=== PATIENT | male | born 1970 | race Caucasian/White ===

== ENCOUNTER 2023-11-27 12:25 | Inpatient (IN) | payer BC, SELFPAY ==
[2023-11-26] VITALS (10 sets, daily range): BP systolic 100–115; BP diastolic 57–74; BMI 28.9; BMI 29.6
[2023-11-26] MEDS: OMNIPAQUE 50 ML PO (10:29)
--- NOTE | 2023-11-26 10:33 | ED.GENMED ---
History of Present Illness
General
Chief Complaint: Abdominal Symptoms
Source: patient, records and spouse
Exam Limitations: none
Time Seen by Provider: 11/26/23 09:00
Nursing documentation reviewed up to this point in time: agreed with
Travel History
Have you had any contact with someone who has COVID-19?: No
Do you have any symptoms of coronavirus? Fever > 100 degrees, chills, cough, shortness of breath, sore throat, loss of taste or smell, muscle aches, or headache?: No
History of Present Illness
History of Present Illness:
Patient is a 53-year-old male who presents to the emergency department complaining of lower abdominal pain that started yesterday and has gotten progressively worse. Patient's had 2 episodes of nausea and vomiting. Patient had mucousy stools.
Patient had a colonoscopy which did show diverticula. Patient has fever and chills. Patient denies nasal congestion, sore throat or cough. Patient denies any chest pain or shortness of breath. Patient denies any symptoms. Patient denies any
melena or hematochezia.
Past History
Past History
ED Past Medical History: GERD and Other (Colon polyps, diverticula)
Social History
Tobacco: Non-smoker
Review of Systems
Review of Systems
All Other Systems: ROS reviewed and negative except as documented in HPI and ROS
Constitutional: Reports fever, fatigue and chills
EENT: Reports no symptoms
Respiratory: Reports no symptoms
Cardiac: Reports no symptoms
ABD/GI: Reports abdominal pain, nausea, vomiting, diarrhea and anorexia; Denies bloody stools or black stools
: Reports no symptoms
Musculoskeletal: Reports no symptoms
Skin: Reports no symptoms
Neurological: Reports no symptoms
Hematologic/Lymphatic: Reports no symptoms
Phy Exam
Physical Exam
Physical Exam:
Physical Exam
General: mild distress, alert and appropriate, well nourished, dry mucous membranes
HENT: Normocephalic, supple with no lymphadenopathy, no thyromegaly
Eyes: Clear sclera, conjuctiva without injection
Heart: Regular rhythm and rate. No S3, S4. No murmur.
Lungs: No respiratory distress, no stridor, lung sounds clear and equal bilaterally
Abdomen: Soft, moderate lower abdominal tenderness with guarding but no rebound, no organomegaly, no CVA tenderness, BS good
Neuro: Alert and oriented x 3, CN II - XII intact, no motor focality, no cerebellar dysfunction
Skin: no rash
Psychiatric: well kept. interactive and cooperative
Extremities: No edema, cyanosis, tenderness, Good and equal peripheral pulses.
Scores
Heart Failure Risk
Heart Failure Risk Score: Not Applicable
Heart Score for Chest Pain Patients
STEMI patient?: Not applicable
Withdrawal Assessment of Alcohol
Withdrawal Assessment Completed?: Not applicable
Course
Orders/Labs/Results
Orders:
Orders
11/26/23 09:25
CT Abd/pel W Iv And Oral Contr Urgent
Comment:
Reason For Exam: LLQ abd tender
0.9% Sodium Chloride 1000 ml [Nss] 1,000 ml IV BOLUS
Acetaminophen [Tylenol] 1,000 mg PO NOW STA
HYDROmorphone [Dilaudid] 0.5 mg IV NOW STA
Iohexol [Omnipaque] See Protocol PO NOW STA
Ondansetron Injectable [Zofran] 4 mg IV NOW STA
11/26/23 10:45
Complete Blood Count/With Diff Urgent
Comprehensive Metabolic Panel Urgent
11/26/23 14:11
Urinalysis Reflex To Culture Urgent
Date Specimen was Collected: 11/26/23
Time Specimen was Collected: 10:47
Abnormal Lab Results
11/26/23
10:45
WBC 14.2 H 10^3/uL
(4.8-10.8)
Abs Immat Gran (auto) 0.1 H 10^3/uL
(0-0.05)
Absolute Neuts (auto) 12.2 H 10^3/uL
(1.4-6.5)
Absolute Lymphs (auto) 1.0 L 10^3/uL
(1.2-3.4)
Absolute Monos (auto) 0.9 H 10^3/uL
(0.1-0.6)
Neutrophils % 86.1 H %
(42.2-75.2)
Lymphocytes % 7.3 L %
(20.5-51.1)
Glucose 132 H mg/dl
(70-99)
11/26/23 10:45
11/26/23 10:45
Vital Signs
Initial and Last Documented VS:
Initial Vital Signs
Temp Pulse Resp BP Pulse Ox
100.5 F H 89 16 105/74 98
11/26/23 08:44 11/26/23 08:44 11/26/23 08:44 11/26/23 08:44 11/26/23 08:44
Last Documented Vital Signs
Temp Pulse Resp BP Pulse Ox
100.5 F H 59 14 100/61 97
11/26/23 08:44 11/26/23 13:15 11/26/23 13:15 11/26/23 13:00 11/26/23 13:15
*Radiology
Radiology exam reviewed: radiology read reviewed (Sigmoid diverticulitis)
*Pulse Oximetry
Patient hypoxic: no
*EKG
Interpreted by ED Provider?: NA
*Charging Machine Operator Interpretation
Rate: Charging Machine Operator- N/A
*Critical Care Note
Total Time (30-74mins, 75-104mins- exclusive of procedures): Not Applicable
ED Attending Note
-
Portions of this chart may have been created with voice recognition software.� Occasional wrong word or��sound alike� substitutions may have occurred due to the inherent limitations of voice recognition software.
Discharge Plan
Departure
Patient Disposition: Admit
Date of Disposition: 11/26/23
Time of Disposition: 15:23
Admit to: Med/Surg
Presentation/result/management discussed w/ accepting MD/DO: Hospitalist
Patient with high blood pressure during this ER visit?: No
Condition: Serious
Discharge Problem:
Acute diverticulitis of intestine
Referrals:
Devyn Laura MD [Family Provider] -
Interventions
Interventions:
*Risk Screen - Suicide Last Done: 11/26/23 11:15
*General Assessment Last Done: 11/26/23 11:15
*Neglect/Abuse Screening Last Done: 11/26/23 11:15
*ED COVID-19 Vaccine History Last Done: 11/26/23 08:44
DL-Cjjwdr-Nuhjrsowbc Assessment Last Done: 11/26/23 11:16
Discharge Date and Time
Print Language: VIET[place]ESE
[2023-11-26] MEDS: TYLENOL 1000 MG PO (10:50)
[2023-11-26] MEDS: DILAUDID 0.5 MG IV ×3 (10:50→20:26)
[2023-11-26] MEDS: ZOFRAN 4 MG IV ×2 (10:51→15:49)
[2023-11-26] MEDS: NSS 1000 IV ×2 (10:51→17:57)
[2023-11-26 10:55] LABS: % Basophils 0.1 % (0-2); % Eosinophils 0.1 % (0-6); % Immature Granulocytes 0.4 % (0-0.5); % Lymphocytes 7.3 % (20.5-51.1); % Neutrophils 86.1 % (42.2-75.2); Absolute Immature Granulocytes 0.1 10^3/uL (0-0.05); Absolute Monocytes 0.9 10^3/uL (0.1-0.6); Absolute Neutrophils 12.2 10^3/uL (1.4-6.5); Hematocrit 42.2 % (39.0-52.0); Hemoglobin 15.1 g/dL (13.0-18.0); Mean Corp Hgb Conc. 35.8 g/dL (33.0-37.0); Mean Corpuscular Hgb 30.2 pg (27.0-31.0); Mean Corpuscular Volume 84.4 fL (80.0-94.0); Nucleated Red Blood Cells % 0 % (-); Platelet Count 194 10^3/uL (130-400); Red Cell Dist. Width 12.3 % (11.5-14.5); White Blood Cell Count 14.2 10^3/uL (4.8-10.8)
[2023-11-26 11:05] LABS: ALT (SGPT) 36 U/L (0-50); AST (SGOT) 24 U/L (17-59); Albumin 4.7 g/dl (3.5-5.0); Alkaline Phosphatase 71 U/L (38-126); Blood Urea Nitrogen 15 mg/dl (9-20); Calcium 9.7 mg/dl (8.4-10.2); Carbon Dioxide 26 mmol/L (22-30); Chloride 104 mmol/L (98-107); Estimated Creatinine Clearance 85 ml/min; Glucose 132 mg/dl (70-99); Potassium 4.6 mmol/L (3.5-5.1); Sodium 138 mmol/L (135-145); Total Bilirubin 0.9 mg/dl (0.2-1.3); Total Protein 7.6 g/dl (6.3-8.2); eGFR > 60.00
[2023-11-26 14:21] LABS: Urine Albumin Negative (Neg - Trace); Urine Bilirubin Negative (Negative); Urine Character Clear (Clear); Urine Color Yellow; Urine Glucose Negative (Negative); Urine Ketone Negative (Negative); Urine Leukocyte Negative (Negative); Urine Nitrite Negative (Negative); Urine Occult Blood Negative (Negative); Urine Specific Gravity 1.015 (<1.030); Urine Urobilinogen Negative (Neg - 1+); Urine pH 6.5 (5.0-9.0)
[2023-11-26] MEDS: LEVAQUIN 100 IV (15:48)
[2023-11-26] MEDS: FLAGYL 500 MG 100 IV (15:48)
[2023-11-26] MEDS: NSS 500 IV (16:14)
--- NOTE | 2023-11-26 16:20 | HPS.HSE ---
Family Physician
-
Family Physician: Devyn Laura
Chief Complaint
-
abdominal pain
History of Present Illness
53-year-old male past medical history of GERD, colonic polyps, anxiety/depression presenting for lower abdominal pain which started 2 days ago. Pain is located in the left lower quadrant some radiation across. Patient had 2 episodes of vomiting
since this morning. He denies any diarrhea or constipation or blood in the stool or black stool. He denies any fevers or chills but did have a fever in the emergency room.
He denies smoking.
Medical History
Past Medical History
Past Medical History: Reports Other (GERD, colonic polyps, anxiety/depression)
Past Surgical History: Reports None
Social History
Tobacco: Non-smoker
Alcohol: None
Drug: None
Family History
Family History: Not pertinent
Allergies / Home Medications
Allergies reflects when Allergies were last updated in [email or web address].
Home Medications with original date entered in [email or web address]
Allergy/Medication List:
Allergies
Allergy/AdvReac Type Severity Reaction Status Date / Time
No Known Allergies Allergy Verified 11/26/23 08:45
Home Medications
esomeprazole magnesium 20 mg capsule,delayed release (Nexium) 20 mg PO DAILY 11/26/23
rosuvastatin 10 mg tablet 10 mg PO DAILY 11/26/23
sertraline 50 mg tablet 50 mg PO DAILY 11/26/23
Review of Systems
-
History Source: Patient
A 12 point ROS was completed and negative except as noted: Yes
Constitutional: Reports No Symptoms
EENT: Reports No Symptoms
Respiratory: Reports No Symptoms
Cardiac: Reports No Symptoms
Abdomen/GI: Reports See HPI
: Reports No Symptoms
Musculoskeletal: Reports No Symptoms
Skin: Reports No Symptoms
Neurological: Reports No Symptoms
Endocrine: Reports No Symptoms
Hematologic/Lymphatic: Reports No Symptoms
Psych: Reports No Symptoms
Physical Exam
Vital Signs
Vital Signs
Temp Pulse Resp BP Pulse Ox
100.5 F H 59 14 100/61 97
11/26/23 08:44 11/26/23 13:15 11/26/23 13:15 11/26/23 13:00 11/26/23 13:15
Physical Exam
General: Well Developed, Well Nourished and No Apparent Distress
HEENT: NormoCephalic, Moist mucous membranes and Atraumatic
Respiratory: Clear
Cardiac: S1/S2 and Regular Rhythm; No Murmur or Rub
GI: Soft, Non Distended, Normal Bowel Sounds and Tender (LLQ ); No Organomegaly
Rectal: Deferred by Provider
Musculoskeletal: No Clubbing, No Cyanosis and No Edema
Skin: No Rash
Neuro: Nonfocal/grossly intact
Laboratory Results
-
11/26/23 10:45
11/26/23 10:45
Laboratory Results
Total Bilirubin 0.9 mg/dl (0.2-1.3) 11/26/23 10:45
AST 24 U/L (17-59) 11/26/23 10:45
ALT 36 U/L (0-50) 11/26/23 10:45
Alkaline Phosphatase 71 U/L (38-126) 11/26/23 10:45
Data Reviewed
-
Lab Data: Labs Reviewed by me
Old Records: Reviewed
Impression/Plan
-
IMPRESSION:
PLAN:
# Sepsis (fever, leukocytosis) secondary to mild acute diverticulitis
-CT abdomen pelvis shows mild mid sigmoid colon acute diverticulitis without perforation or abscess, diffuse bladder wall thickening
-Urinalysis negative
-check Blood cultures
-N.p.o.
-IV fluids
-Zosyn
-Dilaudid, Zofran
Anxiety/depression
-Continue sertraline
GERD
-Continue omeprazole
Hyperlipidemia
-Continue statin
Full code
DVT prophylaxis�Lovenox
N.p.o.
[2023-11-26] MEDS: ZOSYN 50 IV ×2 (17:57→23:09)
[2023-11-26] MEDS: LOVENOX 40 MG SC (17:57)
--- NOTE | 2023-11-26 18:01 | PTCARENOTE ---
pt presents from ED via stretcher. pt is AAO*3, Vss, c/o pain 07/21 received Dilaudid in ED. Vss. pt is oriented to the room. call faye within the reach. will continue plan of care.
[2023-11-27] MEDS: DILAUDID 0.5 MG IV ×2 (02:18→08:13)
[2023-11-27] MEDS: NSS 1000 IV ×2 (02:18→12:04)
[2023-11-27] MEDS: ZOSYN 50 IV ×4 (05:01→23:00)
[2023-11-27 07:45] VITALS: BP 127/68
[2023-11-27] MEDS: PROTONIX 40 MG PO (08:13)
[2023-11-27] MEDS: ZOLOFT 50 MG PO (08:13)
[2023-11-27] MEDS: CRESTOR 10 MG PO (08:13)
[2023-11-27 08:42] LABS: % Basophils 0.2 % (0-2); % Eosinophils 0.8 % (0-6); % Immature Granulocytes 0.3 % (0-0.5); % Lymphocytes 16.6 % (20.5-51.1); % Monocytes 6.9 % (1.7-9.3); % Neutrophils 75.2 % (42.2-75.2); Absolute Eosinophils 0.1 10^3/uL (0-0.7); Absolute Lymphocytes 1.6 10^3/uL (1.2-3.4); Absolute Monocytes 0.7 10^3/uL (0.1-0.6); Absolute Neutrophils 7.2 10^3/uL (1.4-6.5); Hematocrit 36.2 % (39.0-52.0); Hemoglobin 13.3 g/dL (13.0-18.0); Mean Corp Hgb Conc. 36.7 g/dL (33.0-37.0); Mean Corpuscular Hgb 30.6 pg (27.0-31.0); Mean Corpuscular Volume 83.2 fL (80.0-94.0); Mean Platelet Volume 9.7 fL (7.4-10.4); Nucleated Red Blood Cells % 0 % (-); Platelet Count 170 10^3/uL (130-400); Red Blood Cell Count 4.35 10^6/uL (4.70-6.10); Red Cell Dist. Width 12.5 % (11.5-14.5); White Blood Cell Count 9.6 10^3/uL (4.8-10.8)
[2023-11-27 10:02] LABS: ALT (SGPT) 26 U/L (0-50); AST (SGOT) 21 U/L (17-59); Albumin 3.8 g/dl (3.5-5.0); Alkaline Phosphatase 64 U/L (38-126); Blood Urea Nitrogen 12 mg/dl (9-20); Calcium 8.7 mg/dl (8.4-10.2); Carbon Dioxide 24 mmol/L (22-30); Chloride 105 mmol/L (98-107); Estimated Creatinine Clearance 77 ml/min; Glucose 96 mg/dl (70-99); Potassium 4.3 mmol/L (3.5-5.1); Sodium 138 mmol/L (135-145); Total Bilirubin 1.1 mg/dl (0.2-1.3); Total Protein 6.4 g/dl (6.3-8.2); eGFR > 60.00
--- NOTE | 2023-11-27 11:29 | CM ---
Patient seen bedside, initial assessment completed. Patient resides with his and three children in a multiple story home. Patient is independent with ADLs/IADLs, no DME, VN, or SNF history. Patient confirms PCP Dr. Laura, pharmacy [facility]
[place] on [address] Patient confirms prescription coverage, denies food insecurities at home. CM reviewed OBS form, signed, placed in chart. CM will continue to follow for all discharge planning needs.
Plan; home no needs when medically stable.
--- NOTE | 2023-11-27 12:23 | W.PN.HOSP.TC ---
Today's Communication/Plan
-
see outlined plan
Assessment / Plan
Assessment / Plan
Assessment:
Sepsis (fever, leukocytosis) secondary to mild acute diverticulitis
- CT: mild mid sigmoid colon acute diverticulitis without perforation or abscess, diffuse bladder wall thickening
- first 1 episode
- treat medically with IVF, pain control, anti-emetics
- Zosyn day 2
- diet: start clears and ADAT
- last years colonoscopy: Diverticulosis in the sigmoid colon.
Anxiety/depression
- continue sertraline
GERD
- continue omeprazole
Hyperlipidemia
- continue statin
DVT ppx: Lovenox
Code: Full
Anticipated Discharge: Within 24 hours
Subjective/Interval History
-
Date of Service: November 27, 2023
pain controlled
no nausea/vomiting
no fevers
Objective Data
-
Labs:
Laboratory Results
11/27/23
08:07
WBC 9.6
Hgb 13.3
Hct 36.2 L
Plt Count 170
Sodium 138
Potassium 4.3
Chloride 105
Carbon Dioxide 24
BUN 12
Creatinine 1.1
Glucose 96
Calcium 8.7
Total Bilirubin 1.1
AST 21
ALT 26
Alkaline Phosphatase 64
Vital Signs:
Vital Signs
Temp Pulse Resp BP Pulse Ox
98.5 F 69 16 127/68 97
11/27/23 07:45 11/27/23 07:45 11/27/23 07:45 11/27/23 07:45 11/27/23 07:45
I&O
11/26/23 11/27/23 11/28/23
06:59 06:59 06:59
Intake Total 1500 / 1500
Output Total 500 / 500
Balance 1000 / 1000
Physical Exam
-
General: No Apparent Distress
HEENT: Normocephalic and Atraumatic
Respiratory: Negative Wheezes
Cardiac: Regular Rhythm and S1/S2
GI: Soft and Tender (LLQ)
Genito-urinary: No Costovertebral Tender
Musculoskeletal: No Edema
Neuro: AO x 3
Psych: Calm
Data Reviewed
-
Total Time Spent with Patient (in minutes): 42
Labs: Labs Reviewed by me
[2023-11-27 15:35] VITALS: BP 116/71
[2023-11-27] MEDS: LOVENOX 40 MG SC (17:18)
[2023-11-27 23:25] VITALS: BP 115/66
--- NOTE | 2023-11-28 05:28 | DOWNTIME ---
There was a appbackr Client Cast Associate Downtime on 11/28/2023 from 0100 to 11/28/2023 at 0337. Downtime documentation of patient's care, including medication administrations, has been reconciled in the electronic record per guidelines. Refer to the
patient's paper chart under the miscellaneous tab to see printed paper medication records and downtime forms.
[2023-11-28] MEDS: ZOSYN 50 IV (05:57)
[2023-11-28 07:30] VITALS: BP 126/76
[2023-11-28] MEDS: PROTONIX 40 MG PO (08:14)
[2023-11-28] MEDS: CRESTOR 10 MG PO (08:14)
[2023-11-28] MEDS: MIRALAX 17 GRAMS PO (08:14)
[2023-11-28] MEDS: ZOLOFT 50 MG PO (08:14)
--- NOTE | 2023-11-28 08:26 | W.PN.HOSP.TC ---
Today's Communication/Plan
-
dc to home
Assessment / Plan
Assessment / Plan
Assessment:
Sepsis (fever, leukocytosis) secondary to mild acute diverticulitis
- CT: mild mid sigmoid colon acute diverticulitis without perforation or abscess, diffuse bladder wall thickening
- first 1 episode
- transition to Augmentin x 8 further days to complete 10 day course
- diet: LRD now and for 1 week at dc
- last years colonoscopy: Diverticulosis in the sigmoid colon.
Anxiety/depression
- continue sertraline
GERD
- continue omeprazole
Hyperlipidemia
- continue statin
DVT ppx: Lovenox
Code: Full
More than 30 minutes spent in discharge including
Final examination of the patient
Summarizing hospital stay
Instructions for continuing care to all relevant caregivers
Preparation of discharge records, prescriptions, and referral forms
Total time spent (in minutes): 41
Anticipated Discharge: Today
Subjective/Interval History
-
Date of Service: November 28, 2023
no new complaints
tolerating full liquids
Objective Data
-
Vital Signs:
Vital Signs
Temp Pulse Resp BP Pulse Ox
99 F 63 16 126/76 98
11/28/23 07:30 11/28/23 07:30 11/28/23 07:30 11/28/23 07:30 11/28/23 07:30
I&O
11/27/23 11/28/23 11/29/23
06:59 06:59 06:59
Intake Total 1500 / 1500 3440 / 3440
Output Total 500 / 500 520 / 520
Balance 1000 / 1000 2920 / 2920
Physical Exam
-
General: No Apparent Distress
HEENT: Normocephalic and Atraumatic
Respiratory: Negative Wheezes
Cardiac: Regular Rhythm and S1/S2
GI: Soft
Genito-urinary: No Costovertebral Tender
Neuro: AO x 3
Hematologic / Lymphatic: No Lymphadenopathy
Psych: Calm
Data Reviewed
-
Total Time Spent with Patient (in minutes): 42
Labs: Labs Reviewed by me
--- NOTE | 2023-11-28 08:30 | W.DS.TRANS ---
DC Summary - [employer]
-
Discharge Instructions:
Discharge Diagnosis/Procedures acute sigmoid diverticulitis, 1st episode
Diet Low Residue
Additional Diets LRD diet x 1 week then resume normal diet. Nurse
can provide LRD instructions/pamphlet
Activity As tolerated
Instructions:
Stand-Alone Forms:
Changes to Home Medications: No
Discharge Medications:
DC Medications w/original date entered in [employer]
esomeprazole magnesium 20 mg capsule,delayed release (Nexium) 20 mg PO DAILY Gastrointestinal Issue 11/26/23
rosuvastatin 10 mg tablet 10 mg PO DAILY High Cholesterol 11/26/23
sertraline 50 mg tablet 50 mg PO DAILY Depression 11/26/23
amoxicillin 875 mg-potassium clavulanate 125 mg tablet 1 tab PO Q12H #16 tabs 11/28/23
Home Medication Changes
Pending Results: No
Total time spent discharging patient (in min): 41
--- NOTE | 2023-11-28 11:08 | CM ---
CM reviewed chart, patient discharged home no needs.
Plan; home no needs.
== END 2023-11-28 10:42 | disposition home or self-care (01) | DRG 872 ==
LOC: 4 EAST ACU 12:25
PROVIDERS: ADMITTING PHYSICIAN Hospitalist; ATTENDING PHYSICIAN Internal Medicine; EMERGENCY PHYSICIAN Emergency Medicine; FAMILY PHYSICIAN Family Medicine
DX: A41.9 Sepsis, unspecified organism (principal); K57.32 Diverticulitis of large intestine without perforation or abscess without bleeding; F41.9 Anxiety disorder, unspecified; F32.A Depression, unspecified; K21.9 Gastro-esophageal reflux disease without esophagitis
CPT/HCPCS: 74177; 80053; 81003; 85025; 87040; 96361; 96365; 96367; 96375; 96376; 99285; Q9967